=== PATIENT | female | born 1955 | race Caucasian/White ===

== ENCOUNTER 2020-01-12 08:09 | Outpatient (REF) | payer BC, SELFPAY ==
[2020-01-14 18:36] LABS: HPV mRNA E6/E7 rflx Not Detected (Not Detected)
== END 2020-01-12 08:10 | disposition home or self-care (01) ==
LOC: HO.LAB 08:09
PROVIDERS: PCP Internal Medicine Medical Oncology; Visit Provider Obstetrics & Gynecology
DX: Z01.419 Encounter for gynecological examination (general) (routine) without abnormal findings (principal); N95.9 Unspecified menopausal and perimenopausal disorder; N90.4 Leukoplakia of vulva
CPT/HCPCS: 87624; 87625; 88142

== ENCOUNTER 2020-02-03 08:40 | Outpatient (REF) | payer BC, SELFPAY | END 2020-02-03 08:41 | disposition home or self-care (01) | LOC: CF 08:40 | PROVIDERS: PCP Internal Medicine Medical Oncology; Visit Provider Obstetrics & Gynecology | DX: N90.4 Leukoplakia of vulva (principal); F17.200 Nicotine dependence, unspecified, uncomplicated | CPT/HCPCS: 56605; 88305 ==

== ENCOUNTER 2020-02-19 14:16 | Outpatient (REF) | payer BC, SELFPAY ==
--- NOTE | 2020-02-19 14:21 | MM_ITS ---
EXAMINATION: MM SCREENING DIGITAL BREAST TOMOSYNTHESIS, BILATERAL CLINICAL INFORMATION: Screening. Asymptomatic. The lifetime risk of breast cancer based on the Tyrer-Cuzick Model is 5%. COMPARISON: Mammography: 02/13/2019, 02/06/2018, 05/22/2017, 11/20/2016, 11/08/2016 TECHNIQUE: Digital breast tomosynthesis is performed in both the craniocaudal and mediolateral oblique views along with computer-aided detection (CAD). Synthesized 2D images are generated from the tomosynthesis. FINDINGS: There are scattered areas of fibroglandular density (ACR BI-RADS breast composition Category b). There are no significant changes from prior studies. Parenchymal pattern is similar to previous exams. There is no interval mass or architectural abnormality or developing density. No abnormal calcifications. MM/MM tomosynthesis screening BI IMPRESSION: No significant changes from prior studies. ASSESSMENT: BI-RADS 1: Negative RECOMMENDATION: Routine annual mammography screening. This patient's information was entered into a reminder system with a target due date for their next mammogram.
== END 2020-02-19 14:17 | disposition home or self-care (01) ==
LOC: HO.MAMMO 14:16
PROVIDERS: PCP Internal Medicine Medical Oncology; Visit Provider Internal Medicine Medical Oncology
DX: Z12.31 Encounter for screening mammogram for malignant neoplasm of breast (principal)
CPT/HCPCS: 77063; 77067

== ENCOUNTER → 2020-02-25 12:01 | Outpatient (BNVA) | payer BC, SELFPAY | PROVIDERS: PCP Internal Medicine Medical Oncology; Visit Provider Obstetrics & Gynecology | DX: Z76.89 Persons encountering health services in other specified circumstances (principal) ==

== ENCOUNTER 2023-04-03 08:08 | Outpatient (REF) | payer MEDICARE, SELFPAY | END 2023-04-03 08:09 | disposition home or self-care (01) | LOC: HO.MAMMO 08:08 | PROVIDERS: PCP Internal Medicine Medical Oncology; Visit Provider Internal Medicine Medical Oncology | DX: Z12.31 Encounter for screening mammogram for malignant neoplasm of breast (principal) | CPT/HCPCS: 77063; 77067 ==

== ENCOUNTER → 2023-04-03 08:15 | Outpatient (BNV) | payer MEDICARE, SELFPAY | PROVIDERS: PCP Internal Medicine Medical Oncology; Visit Provider Radiology Diagnostic Radiology | DX: Z12.31 Encounter for screening mammogram for malignant neoplasm of breast (principal) | CPT/HCPCS: 77063; 77067 ==

== ENCOUNTER 2024-05-09 15:40 | Outpatient (REF) | payer MEDICARE, SELFPAY ==
--- OUTSIDE RECORDS SUMMARY | 2024-05-09 17:08 | XMS_ITS ---
Author Organization Ar Yanez III, MD Address [address] [place] [address] [place] [address] Care Team Providers Care Retouching Operator Name Role Phone Ar Yanez Primary Care Provider [phone] Allergies Allergen (clinical drug ingredient) Drug/Non Drug Allergy documented on EMR Reaction Allergy Type Onset Date Status No Known Drug Allergy Unknown Drug Allergy Active Results Component Value Reference Range Notes PROFILE, FASTING (COMPREHENS BRITTANIE METABOLIC) (Not yet reviewed by provider) Interpretation: Performing Lab: Notes/Report: URINE DIP STICK Reviewed date:02/19/2023 09:47:33 AM Interpretation: Performing Lab: Notes/Report: SG 1.020 1.005 - 1.025 pH 6.0 5.0 - 9.0 IVANA Negative Negative - NIT Negative Negative - PRO 15 Negative - Trace GLU Negative Negative - KET 5 Negative - UBG 0.2 0.1 - 1.8 LISA Negative 0.2 - 1.3 BLD Positive Negative - Menstrating No CBC WITH AUTO DIFF Reviewed date:03/14/2024 02:04:26 PM Interpretation: Performing Lab: Notes/Report: Lipid Panel Reviewed date:03/14/2024 02:04:37 PM Interpretation: Performing Lab: Notes/Report: Reason For Referral Reason Screen for colon can cer Diagnosis 1 Screen for colon can cer (Z12.11) Referral Organization Ar Yanez III, MD Referring Provider First Name Ar Referring Provider Last Name Beau Referring Provider Speciality Internal M edicine Referred Provider [facility], Gastroenterology Referred Provider Specialty Gastroentero logy General Notes Rose Castro 04/02/2023 03:13:28 PM >Referral faxed, Matthew Rose QUISPE 06/14/2023 03:50:38 PM >Gastro called patient and left a message. I have called patient and left a message as well to call the gastro and schedule a screening colonoscopy and al so call Dr. Yanez office with the appointment date and time., Rose Castro 09/19/2023 03:17:01 PM >Left message to pt., [facility] Rose [facility] 11/15/2023 02:28:10 PM > Patient will not have colonoscopy performed ever. Referral Priority Routine Referral Appointment Date 08/02/2023 REASON FOR VISIT Annual Exam Medications Medication SIG (Take, Route, Fr equency, Duration) Notes Start Date End Date Status Multivitamin Adult - Orally Active Social History Tobacco Use: Social History Observation Description Date Details (start date - stop date) Current Smoker NA - NA Sex Assigned At : Social History Observation Description Sex Assigned At Female Tobacco Use/Smoking Question Answer Notes Patient is a current smoker How often do you smoke cigarettes? every day How many cigarettes a day do you smoke? 6-10 How soon after you wake up d o you smoke your first cigarette? 31-60 minutes Are you interested in quitting? Thinking about q uitting Additional Findings: Tobacco User Light cigarett e smoker ((1-9 cigs/day) Alcohol Screen Question Answer Notes Did you have a drink containing alcohol in the p ast year? No Points 0 Interpretation Negative Vital Signs Temperature 98.6 degrees Fahrenheit 02/20/20 23 Blood pressure systolic 130 mm Hg 02/20/20 23 Blood pressure diastolic 80 mm Hg 023 Heart Rate 84 /min 02/19/2023 Height 62 in 02/19/2023 Weight 125 lbs 02/19/2023 BMI 22.86 kg/m2 02/19/2023 Encounters Encounter Location Date Provider Diagnosis Ar Yanez III, MD [address] [place] [address] [place] [address] 02/19/2023 Ar Yanez Essential hypertensi on I10 ; Overweight E66.3 ; Screening mammogram, encounter for Z12.31 ; Breast density R92.2 and Tobacco dependence F17.200 Assessments Encounter Date Diagnosis (ICD Code) Assessment Notes Treat ment Notes Treatment Clinical Notes 02/19/2023 Essential hypertension (ICD-10 - I10) Her blood pressure today was 130/80. I recommended sodium restriction. 02/19/2023 Overweight (ICD-10 - E66.3) She has lost 10 pounds and her body mass index is in the normal range. This problem has resolved. 02/19/2023 Screening mammogram, encounter for (ICD-10 - Z12.31) She agreed to have an annual screening mammogram. 02/19/2023 Breast density (ICD-10 - R92.2) Her annual mammogram has been scheduled. This density was thought to be benign. She declined a breast examination today. 02/19/2023 Tobacco dependence (ICD-10 - F17.200) I strongly recommended tobacco and smoking cessation. I made her aware of the smoking cessation programs at [facility]. Plan Of Treatment Medication Medication Name Sig Start Date Stop Date Notes Multivitamin Adult - Orally Pending Test Test Name Order Date PROFILE, FASTING (COMPREHENSIVE METABOLI C) 02/19/2023 MAMMOGRAM DIGITAL BILATERAL SCREEN 02/19 Referrals Referral Date Details 02/19/2023 02/19/2023, Screen f or colon cancer , Gastroenterology [facility] Next Appt Details Follow Up: 1 Year, Reason: O V, Annual Exam Provider Name:Ar Yanez, 09/19/2024 04:00:00 PM, [address] [place] [address] [address], [place], [address], Provider Name:Ar Yanez, 03/24/2025 04:00:00 PM, [address] [place] [address] [address], [place], [phone], Progress Notes * Josseline ELLISONOB: 6 (67 yo F)Acc No.[id number]:02/19/2023 Progress Notes Patient:?Giana Marie Provider:?Ar Yanez MD :1955???Age:67 Y???Sex:Female D ate:02/19/2023 Address:[address] [place] Subjective: * Chief Complaints: * ???Annual Exam * HPI: ???Depression Screening:?PHQ-9?Little interest or pleasure in doing things?Not at all ?Feeling down, depressed, or hopeless?Not at all ?Trouble falling or staying asleep, or sleeping too much?Not at all ?Feeling tired or having little energy?Not at all ?Poor appetite or overeating?Not at all ?Feeling bad about yourself or that you are a failure, or have let yourself or your family down?Not at all ?Trouble concentrating on things, such as reading the newspaper or watching television?Not at all ?Moving or speaking so slowly that other people could have noticed; or the opposite, being so fidgety or restless that you have been moving around a lot more than usual?Not at all ?Thoughts that you would be better off or of hurting yourself in some way?Not at all ?Total Score?0 ? She returns to the office at the age of 67 over annual examination. She is followed here for tobacco dependence, hypertension and overweight. Since her last visit she has been healthy and well. She has no new problems. She smokes about 10 cigarettes per day. She continues to work at the [employer]. She refused a breast examination today as well as a rectal examination and pelvic examination. She ddeclined a colonoscopy and she declined a Cologard test. Her examination showed no new findings. She agreed to return to the office when she after comprehensive blood work. She will have blood work in the near future and again before her next visit.She said she did not need or believe in the screening tests and I have offered her. ???SDOH Questions:?SDOH Questions?In the past year have you been worried about losing your housing??No ?In the past year have you or any family members you live with been unable to get any of the following when it was really needed? Check all that apply:?None * ROS:?General/Constitutional:?pain?only normal aches and pains.?Chills?denies.?Fatigue?admits.?Fever?denies.?ENT:?Decreased hearing?denies.?Respiratory:?Cough?non-productive.?Cardiovascular:?Chest pain with exertion?denies.?Dyspnea on exertion?denies.?Shortness of breath?denies.?Gastrointestinal:?Constipation?denies.?Decreased appetite?denies.?Diarrhea?denies.?Heartburn?occasional.?Nausea?denies.?Rectal bleeding?denies.?Vomiting?denies.?Hematology:?bruising?denies.?petechiae?denies.?Swollen glands?none have been noted.?Genitourinary:?Frequent urination?at night.?Musculoskeletal:?Muscle aches?denies.?Painful joints?denies.?Sciatica?denies.?Weakness?denies.?Skin:?Itching?denies.?Rash?denies.?Skin lesion(s)?denies.?Neurologic:?Difficulty speaking?denies.?Dizziness?denies.?Headache?denies.?Low back pain?denies.?Psychiatric:?Depressed mood?denies.? * Medical History:? * Surgical History:?Tonsillect aaron as child uterine biopsy 2004 * Hospitalization/Major Diagno stic Procedure:?Denies Past Hospitalization * Family History:?Father: dece ased 68 yrs, Coronary artery disease, COPD, myocardial infarction, diagnosed with CVD.?Mother: 72 yrs, Congestive heart failure, myocardial infarction, stroke, diagnosed with CVD.?1 brother(s) , 1 sister(s) - healthy. 1 son(s) - healthy. .? Her half brother has COPD. Her half-sister has COPD. * Social History:?Tobacco Use:?Tobacco Use/Smoking?Patient is a?current smoker ?How often do you smoke cigarettes??every day ?How many cigarettes a day do you smoke??6-10 ?How soon after you wake up do you smoke your first cigarette??31-60 minutes ?Are you interested in quitting??Thinking about quitting ?Additional Findings: Tobacco User?Light cigarette smoker ((1-9 cigs/day) ???Drugs/Alcohol:?Drugs?Have you used drugs other than those for medical reasons in the past 12 months??No ?Alcohol Screen?Did you have a drink containing alcohol in the past year??No ?Points?0 ?Interpretation?Negative ???She is with one 38-year-old son, Phillip. She has had one with a vaginal delivery. Her son's name is Phillip. She was born and [place], [place]. 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 * Medications:?TakingMultivita min Adult - Tablet Orally Medication List reviewed and reconciled with the patientTaking Multivitamin Adult - Tablet Orally Medication List reviewed and reconciled with the patient * Allergies:?No Known Drug All ergyno[Allergies Verified] Objective: * Vitals:?Ht: 62, Wt:125, BMI: 22.86, BP:130/80, HR:84, Temp:98.6, Wt-k.7. * Examination: ???General Examination: ?GENERAL APPEARANCE:?pleasant, well nourished, well developed, in no acute distress, calm and relaxed.?HEAD:?atraumatic, normocephalic.?EYES:?eomi, perrla, anicteric, conjugate.?EARS:?normal.?NOSE:?septum intact.?ORAL CAVITY:?normal, unremarkable.?NECK/THYROID:?no jugular venous distention, no carotid bruit, thyroid normal.?LYMPH NODES:?no enlarged lymph nodes,spleen normal.?SKIN:?no suspicious lesions, anicteric.?HEART:?no clicks, gallops, murmurs, or rubs, regular rhythm, S1, S2 normal, no s3, or vascular bruits.?LUNGS:?clear to auscultation .?BREASTS:?not examined.?ABDOMEN:?bowel sounds normal, no ascites, no organomegaly, no mass.?RECTAL EXAM:?not examined.?MUSCULOSKELETAL:?extremities unremarkable, no clubbing, cyanosis or edema.?PERIPHERAL PULSES:?normal.?NEUROLOGIC:?alert and oriented, cranial nerves 2-12 grossly intact, deep tendon reflexes 2+ symmetrical, motor strength normal upper and lower extremities, sensory exam intact.?PSYCH:?alert, oriented , cognitive function intact , good eye contact , speech clear , thought content without suicidal ideation, delusions.? Assessment: * Assessment: 1.?Essential hypertension - I10, Her blood pressure today was 130/80. I recommended sodium restriction.?2.?Overweight - E66.3, She has lost 10 pounds and her body mass index is in the normal range. This problem has resolved.?3.?Screening mammogram, encounter for - , She agreed to have an annual screening mammogram.?4.?Breast density - R92.2, Her annual mammogram has been scheduled. This density was thought to be benign. She declined a breast examination today.?5.?Tobacco dependence - F17.200, I strongly recommended tobacco and smoking cessation. I made her aware of the smoking cessation programs at [facility].? Plan: * Treatment: 2.?Overweight?LAB: PROFILE, FASTING (COMPREHENSIVE METABOLIC) ?LAB: CBC WITH AUTO DIFF ?LAB: Lipid Panel 3.?Screening mammogram, enco unter for?Imaging: MAMMOGRAM DIGITAL BILATERAL SCREEN 4.?Breast density?Imaging: MAMMOGRAM DIGITAL BILATERAL SCREEN 5.?Others? Referral To:Gastroenterology [facility]??Gastroenterology ?Reason:Screen for colon cancer * Labs:? * ?Lab: URINE DIP STICK ? Value Reference Range ?SG 1.020 1.005 - 1.025 * ?pH 6.0 5.0 - 9.0 * ?IVANA Negative Negative - * ?NIT Negative Negative - * ?PRO 15 Negative - Trac e * ?GLU Negative Negative - * ?KET 5 Negative - * ?UBG 0.2 0.1 - 1.8 * ?LISA Negative 0.2 - 1.3 * ?BLD Positive Negative - * ?Menstrating No * Procedure Codes:?33680 URINE -NO MICRO * Preventive Medicine:? ??Counseling:?Smoking/Tobacco Use?Patient counseled on the dangers of tobacco use and urged to quit.?02/19/2023 ?Patient Lifestyle Goals?Patient wants to quit ?Treatment Goals?Cut down by 1 cigarette a week, Set a quit date ?Barriers?Social smoker, Stress ?Self-Management Plan?Make a plan to cut down number of cigarettes over time and set a date to work towards quitting * Follow Up:?1 Year (Reason: O V, Annual Exam) * Images: * Sign off status: Completed true * Provider:?Ar Yanez MD Date:?02/02 Generated for Blink arnaldo/Elizabeth/eTransmitting on:?05/09/2024 05:07 PM EST History and Physical Notes * HPI (History of Present Illness) Category Sub-Category Detail Notes Depression Screening PHQ-9 Little inte rest or pleasure in doing things: Not at all Feeling down, depressed, or hopeless: No t at all Trouble falling or staying asleep, or sl eeping too much: Not at all Feeling tired or having little energy: N ot at all Poor appetite or overeating: Not at all Feeling bad about yourself o r that you are a failure, or have let yourself or your family down: Not at all Trouble concentrating on thi ngs, such as reading the newspaper or watching television: Not at all Moving or speaking so slowly that other people could have noticed; or the opposite, being so fidgety or restless that you have been moving around a lot more than usual: Not at all Thoughts that you would be b chalino off or of hurting yourself in some way: Not at all Total Score: 0 SDOH Questions SDOH Questions In the past year have you been worried about losing your housing?: No In the past year have you or any family members you live with been unable to get any of the following when it was really needed? Check all that apply:: None Examination Category Sub-Category Detail Notes General Examination GENERAL APPEARANCE: pleasant , well nourished, well developed, in no acute distress, calm and relaxed HEAD: atraumatic, normocep halic EYES: eomi, perrla, anicte otoniel, conjugate EARS: normal NOSE: septum intact NECK/THYROID: no jugular venous di stention, no carotid bruit, thyroid normal HEART: no clicks, gallops, murmurs, or rubs, regular rhythm, S1, S2 normal, no s3, or vascular bruits LUNGS: clear to auscultatio n ABDOMEN: bowel sounds normal, no ascites, no organomegaly, no mass NEUROLOGIC: alert and oriented, cranial nerves 2-12 grossly intact, deep tendon reflexes 2+ symmetrical, motor strength normal upper and lower extremities, sensory exam intact SKIN: no suspicious lesion s, anicteric PERIPHERAL PULSES: normal BREASTS: not examined MUSCULOSKELETAL: extremities unremark able, no clubbing, cyanosis or edema LYMPH NODES: no enlarged lymph no miki,spleen normal RECTAL EXAM: not examined PSYCH: alert, oriented , co gnitive function intact , good eye contact , speech clear , thought content without suicidal ideation, delusions ORAL CAVITY: normal, unremarkable Consultation Request Notes Referral Date Referring Provider Referred Provider Not es 02/19/2023 [facility], Gastroenterology Screen for colon cancer
--- OUTSIDE RECORDS SUMMARY | 2024-05-09 17:08 | XMS_ITS | Patient Health Record ---
Author Organization Ar Yanez III, MD Address [address] [place] [address] [place] [address] Care Team Providers Care Hardware Developer Name Role Phone Ar Yanez Primary Care Provider [phone] Allergies Allergen (clinical drug ingredient) Drug/Non Drug Allergy documented on EMR Reaction Allergy Type Onset Date Status No Known Drug Allergy Unknown Drug Allergy Active Results Component Value Reference Range Notes SCREENING COLONOSCOPY Reviewed date:11/15/2023 02:23:21 PM Interpretation:undefined Performing Lab: Notes/Report: undefined Reason For Referral No Information Medications Medication SIG (Take, Route, Fr equency, Duration) Notes Start Date End Date Status Multivitamin Adult - Orally Active Immunizations Vaccine Route Administration Date Status Comme nts Influenza, quad Unknown 12/05/2022 Administered COVID PFIZER Unknown 01/03/2021 Administered COVID Pfizer Bivalent Unknown 01/12/2022 Administered COVID PFIZER Unknown 03/09/2020 Administered COVID PFIZER Unknown 03/30/2020 Administered Social History Tobacco Use: Social History Observation Description Date Details (start date - stop date) Current Smoker NA - NA Sex Assigned At : Social History Observation Description Sex Assigned At Female Alcohol Screen Question Answer Notes Did you have a drink containing alcohol in the p ast year? No Points 0 Interpretation Negative Tobacco Control (Standard) Question Answer Notes Tobacco use: Current smoker How often do you smoke cigarettes? Every day How many cigarettes a day do you smoke? 6-10 How soon after you wake up d o you smoke your first cigarette? 31-60 minutes Are you interested in quitting? Thinking about q uitting Additional Findings: Tobacco user Light cigarett e smoker (1-9 cigs/day) Problems Problem Type SNOMED Code ICD Code Onset Dates Problem Status W/U Status Risk Notes Problem 59565669 Postmenopausal (Z78.0) Active confirmed She is due for a bone density test later this year. She agreed to undergo this when I explained what it was. Problem 43457680 Essential hypertension (I10) Active confirmed Her blood pressure today was in her target range. No change iin her regimen was needed. I recommended aggressive sodium restriction. Problem 25878602 Tobacco dependence (F17.200) Active confirmed I strongly recommended tobacco and smoking cessation. I made her aware of the smoking cessation programs at [facility]. Vital Signs Heart Rate 67 /min 03/21/2024 Temperature 98.2 degrees Fahrenheit 03/21/2024 Blood pressure diastolic 80 mm Hg 03/21/2024 Height 62 in 03/21/2024 Blood pressure systolic 138 mm Hg 03/21/2024 Weight 131 lbs 03/21/2024 BMI 23.96 kg/m2 03/21/2024 Encounters Encounter Location Date Provider Diagnosis Ar Yanez III, MD [address] [place] [address] [address] [address] 03/21/2024 Ar Yanez Tobacco dependence F17.200 ; Postmenopausal Z78.0 ; Essential hypertension I10 ; Overweight E66.3 and Screening mammogram, encounter for Z12.31 Assessments Encounter Date Diagnosis (ICD Code) Assessment Notes Treat ment Notes Treatment Clinical Notes 03/21/2024 Postmenopausal (ICD-10 - Z78.0) She is due for a bone density test later this year. She agreed to undergo this when I explained what it was. 03/21/2024 Tobacco dependence (ICD-10 - F17.200) I strongly recommended tobacco and smoking cessation. I made her aware of the smoking cessation programs at [facility]. 03/21/2024 Essential hypertension (ICD-10 - I10) Her blood pressure today was in her target range. No change iin her regimen was needed. I recommended aggressive sodium restriction. 03/21/2024 Overweight (ICD-10 - E66.3) She has lost 10 pounds and her body mass index is in the normal range. This problem has resolved. 03/21/2024 Screening mammogram, encounter for (ICD-10 - Z12.31) She agreed to have an annual screening mammogram. Plan Of Treatment Pending Test Test Name Order Date PROFILE, FASTING (COMPREHENSIVE METABOLI C) 10/17/2019 PROFILE, FASTING (COMPREHENSIVE METABOLI C) 02/19/2023 PROFILE, FASTING (COMPREHENSIVE METABOLI C) 10/16/2018 PROFILE, FASTING (COMPREHENSIVE METABOLI C) 12/07/2022 PROFILE, FASTING (COMPREHENSIVE METABOLI C) 02/15/2018 LIPID PANEL 10/17/2019 LIPID PANEL 10/16/2018 LIPID PANEL 12/07/2022 LIPID PANEL 02/15/2018 CBC w DIFF 12/07/2022 CBC w DIFF 02/15/2018 CBC w DIFF 10/17/2019 CBC w DIFF 10/16/2018 MAMMOGRAM DIGITAL BILATERAL SCREEN 02/19 SARS COV2 RNA RT PCR 06/23/2019 MM tomosynthesis screening BI 03/21/2024 Next Appt Details Provider Name:Ar Yanez, 09/19/2024 04:00:00 PM, [address] [place] [address] [address], [place], [address], Provider Name:Ar Yanez, 03/24/2025 04:00:00 PM, [address] [place] [address] [address], [place], [address], Insurance Providers Payer Name Payer Address Payer Phone Subscriber Number Group Number Insured Name Patient Relationship to Insured Coverage Start Date Coverage End Date MEDICARE NGS [address] [place] [address] [id number] Marie Faria Self - patient is the insured [facility] [address] [place], [place] [id number] Marie Faria Self - patient is the insured Medical (General) History Medical History History ICD Code tobacco dependence postmenopausal fracture right upper extremity childhood essential hypertension density left breast November 2016 overweight Surgical History Surgery Date(Month/Year) uterine biopsy 2004 Tonsillectomy as child
--- OUTSIDE RECORDS SUMMARY | 2024-05-09 17:08 | XMS_ITS ---
Author Organization Ar Yanez III, MD Address [address] [place] [address] [place] [address] Care Team Providers Care Certified Surgical Technician Name Role Phone Ar Yanez Primary Care Provider REASON FOR VISIT Annual Exam Social History Sex Assigned At : Social History Observation Description Sex Assigned At Female Encounters Encounter Location Date Provider Diagnosis Ar Yanez III, MD [address] [place] [address] [place] [address] 02/25/2024 Ar Yanez Plan Of Treatment Next Appt Details Provider Name:Ar Yanez, 09/19/2024 04:00:00 PM, [address] [place] [address] [place], [address], Provider Name:Ar Yanez, 03/24/2025 04:00:00 PM, [address] [place] [address] [place], [address], Progress Notes * KHAIShey HAMMONDeDOB: (69 yo F)Acc No.[id number]:02/25/2024 Progress Notes Patient:?Marie ELLISON Provider:?Ar Yanez MD :1955???Age:68 Y???Sex:Female D ate:02/25/2024 Address:[address] [place] Subjective: * Chief Complaints: * ???1. Annual Exam. * Medical History:? Objective: * Vitals:? Assessment: Plan: * Treatment: * Images: * The named appointment provid er may or may not be the originator of this progress note, and it is not deemed complete until electronically signed by the appointment provider. Sign off status: Pending * Provider:?Ar Yanez MD Date:?02/03 Generated for Elfego mcintosh/Elizabeth/Sam on:?05/09/2024 05:08 PM EST
--- OUTSIDE RECORDS SUMMARY | 2024-05-09 17:08 | XMS_ITS ---
Author Organization Ar Yanez III, MD Address [address] [place] [address] [place] [address] Care Team Providers Care Grocery Stocker Name Role Phone Ar Yanez Primary Care Provider Allergies Allergen (clinical drug ingredient) Drug/Non Drug Allergy documented on EMR Reaction Allergy Type Onset Date Status No Known Drug Allergy Unknown Drug Allergy Active REASON FOR VISIT wellness visit for medicare, Annual examination, Tobacco dependence, Hypertension, Overweight Medications Medication SIG (Take, Route, Fr equency, Duration) Notes Start Date End Date Status Multivitamin Adult - Orally Active Social History Tobacco Use: Social History Observation Description Date Details (start date - stop date) Current Smoker NA - NA Sex Assigned At : Social History Observation Description Sex Assigned At Female Tobacco Control (Standard) Question Answer Notes Tobacco use: Current smoker How often do you smoke cigarettes? Every day How many cigarettes a day do you smoke? 6-10 How soon after you wake up d o you smoke your first cigarette? 31-60 minutes Are you interested in quitting? Thinking about q uitting Additional Findings: Tobacco user Light cigarett e smoker (1-9 cigs/day) Vital Signs Temperature 98.2 degrees Fahrenheit 03/21/19 25 Blood pressure systolic 138 mm Hg 03/21/19 25 Blood pressure diastolic 80 mm Hg 025 Heart Rate 67 /min 03/21/2024 Height 62 in 03/21/2024 Weight 131 lbs 03/21/2024 BMI 23.96 kg/m2 03/21/2024 Encounters Encounter Location Date Provider Diagnosis Ar Yanez III, MD [address] [place] [address] [place] [address] 03/21/2024 Ar Yanez Tobacco dependence F17.200 ; Postmenopausal Z78.0 ; Essential hypertension I10 ; Overweight E66.3 and Screening mammogram, encounter for Z12.31 Assessments Encounter Date Diagnosis (ICD Code) Assessment Notes Treat ment Notes Treatment Clinical Notes 03/21/2024 Tobacco dependence (ICD-10 - F17.200) I strongly recommended tobacco and smoking cessation. I made her aware of the smoking cessation programs at [facility]. 03/21/2024 Postmenopausal (ICD-10 - Z78.0) She is due for a bone density test later this year. She agreed to undergo this when I explained what it was. 03/21/2024 Essential hypertension (ICD-10 - I10) Her [...] an annual screening mammogram. Plan Of Treatment Medication Medication Name Sig Start Date Stop Date Notes Multivitamin Adult - Orally Pending Test Test Name Order Date MM tomosynthesis screening BI 03/21/2024 Next Appt Details Follow Up: 6 Months, Reason: OV Provider Name:Ar Yanez, 09/19/2024 04:00:00 PM, [address] [place] [address] [address], [place], [phone], Provider Name:Ar Yanez, 03/24/2025 04:00:00 PM, [address] [place] [address] [address], [place], [id number], Progress Notes * Josseline ELLISONOB: (69 yo F)Acc No.[id number]:03/21/2024 Progress Notes Patient:?Marie ELLISON Provider:?Ar Yanez MD :1955???Age:69 Y???Sex:Female D ate:03/21/2024 Address:[address], [id number] Subjective: * Chief Complaints: * ???Wellness visit for medica reAnnual examinationTobacco dependenceHypertensionOverweight * HPI: ???Depression Screening:?She returns to the office for an annual physical examination and a Medicare wellness visit.? This is done once a year.? She had many questions all of which were answered in full.? We discussed our general plan or wellness.? Her first topic was colonoscopies.? I explained to her in detail what a colonoscopy was in the risks and the benefits mechanics of the procedure as well as the details of the preparation.? She has never had a colonoscopy and declined absolutely to undergo 1.? She gave no reason except that she said she thought she did not need it.? I then discussed an alternative colonoscopy which is cologard. I explained what this was and how which done and she absolutely completely declined to undergo that procedure.? She said she did not needed.? She is due for a mammogram in the near future and she had one scheduled.? She agrees to this.? She does not do breast self-examination.? I explained to her the rationale for that but she continues to decline to do it.? I recommended an annual rectal examination which she declined to do.? I offered to do a breast examination today to which she agreed.? I offered to do a pelvic examination with a Pap smear or to refer her to a single wire saw operator or medical bill processor for reproductive health care.? She declined to do this as well saying she does not need it.? She did agree to annual blood work.? I discussed with her what blood tests we would order what they were and why we do them.? I offered to schedule her for a bone density and explained why we do this every few years.? She agreed to undergo that test and we scheduled it.? We discussed safety at home which she says was adequate.? He denies being a victim of any sort of abuse.? Her vision and hearing are reported to be intact.? We agreed that given her past medical history she should come to the office 3 times a year for evaluation medication review. We reviewed her smoking history.? I offered to refer her to a smoking cessation program in her home community.? She declined saying she did not need this.? She stated that she would stop smoking when she was ready and had decided to do it.? I reviewedd with her the health consequences of continued smoking. She agreed to this.I offered to provide her with written report of her wellness visit but she declined? saying she did not needed. ?PHQ-9?Little interest or pleasure in doing things?Not at [...] in some way?Not at all ?Total Score?0 ???COVID-19 Screening:?Questions?Have you had any new onset fever, chills, cough, congestion, sore throat, shortness of breath, muscle aches??No ???Fall Risk Screening:?Fall History?Have you had any falls with injury in the past year??No ?Have you had two or more falls in the past year??No ?Fall Risk Assessment:?SDOH Questions:?SDOH Questions?In the past year have you been worried about losing your housing??No ?In the past year have you or any family members you live with been unable to get any of the following when it was really needed? Check all that apply:?Decline to answer * ROS:?General/Constitutional:?pain?only normal aches and pains.?Chills?denies.?Fatigue?admits.?Fever?denies.?ENT:?Decreased hearing?denies.?Respiratory:?Cough?resolved.?Cardiovascular:?Chest pain with exertion?denies.?Dyspnea on exertion?denies.?Shortness of breath?denies.?Gastrointestinal:?Constipation?occasional.?Decreased appetite?denies.?Diarrhea?denies.?Heartburn?denies.?Nausea?denies.?Rectal bleeding?denies.?Vomiting?denies.?Hematology:?bruising?denies.?petechiae?denies.?Swollen glands?none have been noted.?Genitourinary:?Frequent urination?at night.?Musculoskeletal:?Muscle [...] son(s) - healthy. .? Her half brother had COPD and of a myocardial infarction at age 70.. Her half-sister has COPD. Her son is in? a RECOVERY PROGRAM at age 43. * Social History:?Tobacco Use:?Tobacco Control (Standard)?Tobacco use:?Current smoker ?How often do you smoke cigarettes??Every day ?How many cigarettes a day do you smoke??6-10 ?How soon after you wake up do you smoke your first cigarette??31-60 minutes ?Are you interested in quitting??Thinking about quitting ?Additional Findings: Tobacco user?Light cigarette smoker (1-9 cigs/day) ???She is with one 38-year-old son, Phillip. She has had one with a vaginal delivery. Her son's name is Phillip. She was born and [place], [place]. 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 * Medications:?TakingMultivita min Adult - Tablet Orally Medication List reviewed and reconciled with the patientTaking Multivitamin Adult - Tablet Orally Medication List reviewed and reconciled with the patient * Allergies:?No Known Drug All ergyno[Allergies Verified] Objective: * Vitals:?Ht: 62, Wt:131, BMI: 23.96, BP:138/80, HR:67, Temp:98.2, Wt-k.42. * Examination: ???General Examination: ?GENERAL APPEARANCE:?pleasant, well nourished, well developed, in no acute distress, calm and relaxed, woman.?HEAD:?atraumatic, normocephalic.?EYES:?eomi, perrla, anicteric, conjugate.?EARS:?normal.?NOSE:?septum intact.?ORAL CAVITY:?normal, unremarkable.?NECK/THYROID:?no jugular venous distention, no carotid bruit, thyroid normal.?LYMPH NODES:?no enlarged lymph nodes,spleen normal.?SKIN:?no suspicious lesions, anicteric.?HEART:?no clicks, gallops, murmurs, or rubs, regular rhythm, S1, S2 normal, no s3, or vascular bruits.?LUNGS:?clear to auscultation .?BREASTS:??no masses palpable bilaterally.?ABDOMEN:?bowel sounds normal, no ascites, no organomegaly, no mass.?RECTAL EXAM:?not examined.?MUSCULOSKELETAL:?extremities unremarkable, no clubbing, cyanosis or edema.?PERIPHERAL PULSES:?normal.?NEUROLOGIC:?alert and oriented, cranial nerves 2-12 grossly intact, deep tendon reflexes 2+ symmetrical, motor strength normal upper and lower extremities, sensory exam intact.?PSYCH:?alert, oriented, thought process logical, goal directed, speech clear, mood/affect full range, good eye contact, alert, oriented.? Assessment: * Assessment: 1.?Tobacco dependence - F17. 200 (Primary)???Notes :I strongly recommended tobacco and smoking cessation. I made her aware of the smoking cessation programs at [facility].???2.?Postmenopausal - Z78.0???Notes :She is due for a bone density test later this year. She agreed to undergo this when I explained what it was.???3.?Essential hypertension - I10???Notes :Her blood pressure today was in her target range.? No change iin her regimen was needed.? I recommended aggressive sodium restriction.???4.?Overweight - E66.3???Notes :She has lost 10 pounds and her body mass index is in the normal range. This problem has resolved.???5.?Screening mammogram, encounter for - Z12.31???Notes :She agreed to have an annual screening mammogram.??? Plan: * Treatment: * Imaging:? * ?Imaging: MM tomosynthes is screening BI * Procedure Codes:?G0438 ANDREI Tomlinson CATRACHO VST; PERSNL PPS INIT * Preventive Medicine:? ??Counseling:?Smoking/Tobacco Use?Patient counseled on the dangers of tobacco use and urged to quit.?03/21/2024 ?Patient Lifestyle Goals?Patient wants to quit ?Treatment Goals?Set a quit date, Cut down by 1 cigarette a week ?Barriers?Social smoker, Stress ?Self-Management Plan?Make a plan to cut down number of cigarettes over time and set a date to work towards quitting * Follow Up:?6 Months (Reason: OV) * Images: * Sign off status: Completed true * Provider:?Ar Yanez MD Date:?03/05 Generated for Elfego mcintosh/Elizabeth/eTransmitting on:?05/09/2024 05:08 PM EST History and Physical Notes * [...] way: Not at all Total Score: 0 Fall Risk Screening Fall History Have you had any falls with injury in the past year?: No Have you had two or more falls in the st year?: No Fall Risk Assessment:: COVID-19 Screening Questions Have you had any new onset fever, chills, cough, congestion, sore throat, shortness of breath, muscle aches?: No SDOH Questions SDOH Questions In the past year have you been worried about losing your housing?: No In the past year have you or any family members you live with been unable to get any of the following when it was really needed? Check all that apply:: Decline to answer Examination Category Sub-Category Detail Notes General Examination GENERAL APPEARANCE: pleasant , well nourished, well developed, in no acute distress, calm and relaxed, woman HEAD: atraumatic, normocep halic EYES: eomi, perrla, [...] lesion s, anicteric PERIPHERAL PULSES: normal BREASTS: no masses palpable b ilaterally MUSCULOSKELETAL: extremities unremark able, no clubbing, cyanosis or edema LYMPH NODES: no enlarged lymph no miki,spleen normal RECTAL EXAM: not examined PSYCH: alert, oriented, tho ught process logical, goal directed, speech clear, mood/affect full range, good eye contact, alert, oriented ORAL CAVITY: normal, unremarkable
== END 2024-05-09 15:41 | disposition home or self-care (01) ==
LOC: HO.MAMMO 15:40
PROVIDERS: PCP Internal Medicine Medical Oncology; Visit Provider Internal Medicine Medical Oncology
DX: Z12.31 Encounter for screening mammogram for malignant neoplasm of breast (principal)
CPT/HCPCS: 77063; 77067

== ENCOUNTER → 2024-05-09 15:45 | Outpatient (BNV) | payer MEDICARE, SELFPAY | PROVIDERS: PCP Internal Medicine Medical Oncology; Visit Provider Internal Medicine | DX: Z12.31 Encounter for screening mammogram for malignant neoplasm of breast (principal) | CPT/HCPCS: 77063; 77067 ==